=== PATIENT | male | born 1960 | race Caucasian/White ===

== ENCOUNTER 2022-09-16 14:21 | Inpatient (IN) | payer MEDICAID ==
[2022-09-16] VITALS (8 sets, daily range): BP systolic 120–153; BP diastolic 62–98
[~2022-09-16] VITALS: Ht 165.1 cm; Wt 104.3 kg
--- NOTE | 2022-09-16 14:37 | NUR ---
BG 258
--- NOTE | 2022-09-16 14:55 | NUR ---
PT A/O X4 98% O2 SAT ON ROOM AIR BREATHING EVEN AND UNLABORED. C/O: S/P SEIZURE DOES NOT REMEBER EVENTS BEFORE SEIZURE. TAKES BP MEDS AT HOME. REPORTS FALLING ON THE GOUND HAS LESION ON THE FOREHEAD MD AWARE. HAS Hx OF SEIZURES TAKES MEDS DOES NOT RECALL THE NAMES
[2022-09-16] MEDS ORDERED: ONDANSETRON HCL/PF 4 MG/2 ML VIAL IV ONE (15:00)
[2022-09-16 15:15] LABS: BASOPHILS % (AUTO) 0.2 % (0.0-2.0); EOSINOPHILS % (AUTO) 0.5 % (0.0-6.0); HEMATOCRIT 40 % (39-51); HEMOGLOBIN 13.4 g/dL (13.5-17.5); LYMPHOCYTES # (AUTO) 0.8 K/uL (0.8-4.8); LYMPHOCYTES % (AUTO) 4.6 % (20.0-44.0); MEAN CORPUSCULAR HGB CONC 34 g/dl (31.0-36.0); MEAN CORPUSCULAR VOLUME 84 fL (80-96); MONOCYTES # (AUTO) 1.1 K/uL (0.1-1.30); MONOCYTES % (AUTO) 6.3 % (2.0-12.0); NEUTROPHILS # (AUTO) 15.7 K/uL (1.8-8.9); NEUTROPHILS % (AUTO) 88.4 % (43.0-81.0); PLATELET COUNT (AUTO) 440 K/uL (150-450); RED BLOOD CELL COUNT(AUTO) 4.74 MIL/uL (4.5-6.0); WHITE BLOOD COUNT (AUTO) 17.8 K/uL (4.3-11.0)
[2022-09-16] MEDS ORDERED: ONDANSETRON HCL/PF 4 MG/2 ML VIAL ONE (15:15)
[2022-09-16 15:30] LABS: CALCIUM, SERUM 8.2 mg/dL (8.5-10.1); CREATININE 1.5 mg/dL (0.6-1.3); POTASSIUM 3.5 mmol/L (3.5-5.1)
--- NOTE | 2022-09-16 15:33 | NUR ---
SODIUM 118 PER LAB. MADE AWARE.
[2022-09-16 15:35] LABS: ALBUMIN 3.8 g/dL (3.4-5.0); BILIRUBIN,TOTAL 0.6 mg/dL (0.2-1.0); MAGNESIUM 2.6 mg/dL (1.8-2.4); TOTAL PROTEIN, SERUM 7.4 g/dL (6.4-8.2)
[2022-09-16] MEDS ORDERED: LOSA50TA39 PO (15:58)
[2022-09-16] MEDS ORDERED: AMLO-213 PO (15:58)
[2022-09-16] MEDS ORDERED: ARIP5TAB10 PO (15:58)
[2022-09-16] MEDS ORDERED: CHLO25TA2 PO (15:58)
[2022-09-16] MEDS ORDERED: ASPI-1169 PO (15:58)
[2022-09-16] MEDS ORDERED: SERT50TA PO (15:58)
[2022-09-16] MEDS ORDERED: LEVE500T9 PO (15:58)
[2022-09-16] MEDS ORDERED: IV NS 0.9% 1,000 ML IV ONE (16:00)
[2022-09-16] MEDS ORDERED: LEVETIRACETAM (500MG) 2,000 MG in IV NS 0.9% 100 ML IV ONE (16:00)
[2022-09-16 16:01] LABS: BILIRUBIN,URINE NEGATIVE (NEGATIVE); COLOR,URINE YELLOW (YELLOW); LEUKOCYTE ESTERASE ,URINE NEGATIVE (NEGATIVE); NITRITE, URINE NEGATIVE (NEGATIVE); PROTEIN,URINE 1+ mg/dl (NEGATIVE); UGLUCOSE NEGATIVE (NEGATIVE); UROBILINOGEN,URINE 0.2 EU/dL (0.2)
[2022-09-16] MEDS ORDERED: Z GUARD REMEDY 4 OZ OINT TP PRN (16:30)
[2022-09-16] MEDS ORDERED: DEXTROSE 50%-WATER 50 ML DISP.SYRIN IV PRN (16:30)
[2022-09-16] MEDS ORDERED: ONDANSETRON HCL/PF 4 MG/2 ML VIAL IVP PRN (16:30)
[2022-09-16] MEDS ORDERED: INSULIN REGULAR, HUMAN 100 UNIT/ML 3 ML VIAL SQ PRN (16:30)
[2022-09-16] MEDS: LEVETIRACETAM (500MG) 500 MG in IV NS 0.9% 100 ML IV SCH (16:30)
[2022-09-16] MEDS ORDERED: MAG HYDROX/AL HYDROX/SIMETH 30 ML UDC PO PRN (16:30)
[2022-09-16] MEDS ORDERED: ACETAMINOPHEN 325 MG TABLET PO PRN (16:30)
[2022-09-16] MEDS ORDERED: ZOLPIDEM TARTRATE 5 MG TABLET PO PRN (16:30)
[2022-09-16] MEDS ORDERED: ENOXAPARIN SODIUM 30 MG/0.3 ML DISP.SYRIN SQ SCH (16:30)
[2022-09-16] MEDS ORDERED: MAGNESIUM HYDROXIDE 30 ML UDC PO PRN (16:30)
--- NOTE | 2022-09-16 16:30 | NUR ---
civud swab collected and sent to lab
[2022-09-16 17:05] LABS: BACTERIA,URINE None seen /HPF (None Seen); MUCUS,URINE Few /LPF (None Seen); RBC,URINE 21-50 /HPF (0-2); SPERM,URINE Few /HPF (None Seen); SQUAMOUS EPITHELIAL CELL,UR 0-2 /HPF (None Seen); WBC,URINE 0-2 /HPF (0-3)
[2022-09-16 17:05] LABS: ALBUMIN 3.8 g/dL (3.4-5.0); BILIRUBIN,DIRECT 0.2 mg/dL (0.0-0.2); BILIRUBIN,TOTAL 0.6 mg/dL (0.2-1.0); TOTAL PROTEIN, SERUM 7.4 g/dL (6.4-8.2)
--- NOTE | 2022-09-16 17:21 | NUR ---
BED ASSIGNED, ICU 254, ADMITTING AWARE
--- NOTE | 2022-09-16 17:40 | NUR ---
report given to haja LINTON
[2022-09-16 18:15] LABS: BAND % (MANUAL) 5 % (0.0-5.0); EOSINOPHILS % (MANUAL) 2 % (0-4); LYMPHOCYTES % (MANUAL) 4 % (16-48); MONOCYTES % (MANUAL) 8 % (0-11.0); NEUTROPHILS % (MANUAL) 81 (42-76)
[2022-09-16] MEDS: CEFTRIAXONE 1 G in IV D5W 50 ML IV SCH (19:32)
[2022-09-16] MEDS: ENOXAPARIN SODIUM 40 MG/0.4 ML DISP.SYRIN SQ SCH (19:35)
[2022-09-16] MEDS: IV NS 0.9% 1,000 ML IV PRN (19:37)
[2022-09-16] MEDS: BLOOD SUGAR DIAGNOSTIC 1 EACH STRIP IN SCH ×2 (21:11→22:33)
--- NOTE | 2022-09-16 21:27 | NUR ---
MANAGER QUALITY COMPLIANCE. ADMISSION. RECEIVED THE PT FROM ER VIA [facility]. PT IS AWAKE, ALERT. FOLLOW COMMANDS. INSTRUCTOR CREELER SHOWING NSR. IV RT AND LT HAND 20AND 22G. IVF NS 150 ML/H, HOB ELEVATED. ALL OVER THE BODY RASH NOTED. PICTURE TAKEN. WILL MONITOR VITALS
--- NOTE | 2022-09-16 22:40 | NUR ---
CUSTOMER DATA TECHNICIAN. TROPONIN RESULT NOTIFIED SEFERINO
[2022-09-17] VITALS (15 sets, daily range): BP systolic 89–136; BP diastolic 36–84
--- NOTE | 2022-09-17 03:19 | NUR ---
arboriculture teacher. am care n given, remaining same ivf ns 150 ml/h. hob elevated. room air. sat 96%. no acute distress noted, quality assurance monitor body showing nsr. will continue to monitor vitals.
[2022-09-17] MEDS: IV NS 0.9% 1,000 ML IV PRN (03:39)
[2022-09-17] MEDS: LEVETIRACETAM (500MG) 500 MG in IV NS 0.9% 100 ML IV SCH (03:40)
[2022-09-17 05:19] LABS: BASOPHILS % (AUTO) 0.2 % (0.0-2.0); EOSINOPHILS % (AUTO) 1.6 % (0.0-6.0); HEMATOCRIT 38 % (39-51); HEMOGLOBIN 12.8 g/dL (13.5-17.5); LYMPHOCYTES # (AUTO) 1.1 K/uL (0.8-4.8); LYMPHOCYTES % (AUTO) 9.5 % (20.0-44.0); MEAN CORPUSCULAR HGB CONC 34 g/dl (31.0-36.0); MEAN CORPUSCULAR VOLUME 84 fL (80-96); MONOCYTES # (AUTO) 1.3 K/uL (0.1-1.30); NEUTROPHILS # (AUTO) 9.2 K/uL (1.8-8.9); NEUTROPHILS % (AUTO) 77.7 % (43.0-81.0); PLATELET COUNT (AUTO) 364 K/uL (150-450); RED BLOOD CELL COUNT(AUTO) 4.48 MIL/uL (4.5-6.0); WHITE BLOOD COUNT (AUTO) 11.8 K/uL (4.3-11.0)
[2022-09-17 05:49] LABS: CALCIUM, SERUM 8.2 mg/dL (8.5-10.1); CREATININE 1.3 mg/dL (0.6-1.3); POTASSIUM 3.5 mmol/L (3.5-5.1)
[2022-09-17 05:50] LABS: ALBUMIN 3.3 g/dL (3.4-5.0); BILIRUBIN,DIRECT 0.2 mg/dL (0.0-0.2); BILIRUBIN,TOTAL 0.5 mg/dL (0.2-1.0); MAGNESIUM 2.5 mg/dL (1.8-2.4); PHOSPHORUS 2.9 mg/dL (2.5-4.9); TOTAL PROTEIN, SERUM 6.5 g/dL (6.4-8.2)
--- NOTE | 2022-09-17 06:28 | NUR ---
BILINGUAL SPEECH LANGUAGE PATHOLOGIST. TROPONIN RESULT NOTIFIED YARITZA JAMISON. ORDER IS NOTIFY DR GONCALVES.
[2022-09-17 06:31] LABS: THYROID STIMULATING HORMONE 0.372 uIU/mL (0.358-3.74)
[2022-09-17 07:17] LABS: ABG BASE EXCESS -5.5 mmol/L; ABG PCO2 32.8 mmHg (35.0-45.0); ABG PH 7.374 (7.350-7.450); ABG PO2 36.4 mmHg (75.0-100.0); COHb 0.5 % (0.5-1.5); MetHb 0.3 % (0.0-1.5); O2Hb 67.1 % (94.0-97.0); SITE, ABG Other; VENT MODE, BG 3L NC
--- NOTE | 2022-09-17 07:43 | NUR ---
WOUND CARE CONSULT: PT PRESENTS WITH SKIN CONDITION WITH MULTIPLE DRY SCABS AND SCRATCH JERRY, PRESENT ON ADMISSION. PT STATES THAT HE HAD ALLERGY TO A PAIN MEDICATION PRIOR TO ADMISSION. PT THEN STATED DOES NOT KNOW WHY HE HAS RASH/SKIN CONDITION. DEFER TO PMD FOR RASH/SKIN CONDITION. PT ALSO NOTED TO HAVE DRIED BLOOD ON PLANTAR FEET. PT STATES IT IS FROM WHEN HE PULLED OUT HIS IV. DISCUSSED SKIN PROTECTION WITH NURSING STAFF. PT DEMONSTRATED ABILITY TO TURN AND REPOSITION IN BED AND IS CONTINENT AT THIS TIME. MD IN AGREEMENT WITH PLAN OF CARE.
[2022-09-17] MEDS: BLOOD SUGAR DIAGNOSTIC 1 EACH STRIP IN SCH ×4 (08:33→21:38)
[2022-09-17] MEDS: PANTOPRAZOLE 40 MG TABLET.DR PO SCH (08:34)
[2022-09-17] MEDS: SERTRALINE HCL 50 MG TABLET PO SCH (08:35)
[2022-09-17] MEDS: AMLODIPINE BESYLATE 5 MG TABLET PO SCH (08:35)
[2022-09-17] MEDS: ASPIRIN 81 MG TAB.CHEW PO SCH (08:36)
[2022-09-17] MEDS: LOSARTAN POTASSIUM 25 MG TABLET PO SCH (08:36)
[2022-09-17] MEDS ORDERED: IV NS 0.9% 1,000 ML IV PRN (09:00)
[2022-09-17] MEDS ORDERED: PANTOPRAZOLE 40 MG VIAL IV SCH (09:00)
--- NOTE | 2022-09-17 09:22 | NUR ---
Cont Seizure Precaution: Second time: Pt found standing next to bed. Disrobed EKG leads off. BP cuff removed Frequent re-orientation provided. Notified Charge Nurser Jacki for Sitter request for added safety. Attempted to apply restraints, but pt refuses and gets more agitated Bed alarm in place Pt remains impulsive. and gets OOB
--- NOTE | 2022-09-17 09:44 | NUR ---
3rd attempt found disrobed at side of bed urinated on the floor gown changed hygiene care provided reoriented and explained to stay in bed for safety PT eval at bedside
--- NOTE | 2022-09-17 09:53 | NUR ---
pt refused EKG placemant at this time will try to re apply later
--- NOTE | 2022-09-17 11:07 | NUR ---
Frequent reorientation provided to stay in bed. Pt cont to remain non compliant with hospital policy. MD notified and aware Sitter request submitted and awaiting approval
--- NOTE | 2022-09-17 11:55 | NUR ---
RN NOTE- ARRIVED TRANSFER FROM ICU. DX- SEIZURES, HYPONATREMIA. PT AOX4 A BIT CONFUSED AND OPPOSITIONAL TO CARE. DIRECTED ORIENTED, CALM INTERACTIVE. VS - BP- 123/73, HR- 87, RR- 20, T- 98.9, O2 SATS 96%. IV SITE - L HAND #22G, LAC #20G. SIDERAILS UP, BED LOCKED, CALL LIGHT IN REACH. MONITOR / ASSIST. ORDERS RECEIVED / COMPLIED
[2022-09-17] MEDS ORDERED: LORAZEPAM INJ 2 MG/ML VIAL IV STA (14:29)
[2022-09-17] MEDS ORDERED: LORAZEPAM INJ 2 MG/ML VIAL IM STA (14:33)
--- NOTE | 2022-09-17 14:46 | NUR ---
RN NOTE- INTRUSIVE, STEALING CELL PHONES AND TRYING TO GET ON COMPUTERS. OPPOSITIONAL, RAISING VOICE. FISH AGENT MADALYN ORDERED ATIVAN 2 MG IM STAT. SECURITY CALLED AND AT BEDSIDE
[2022-09-17] MEDS ORDERED: IOHEXOL-350 100 ML VIAL IV ONE (16:05)
[2022-09-17] MEDS ORDERED: CT SWABBABLE VALVE TRANS SET 1 EA INFUS.SET MC ONE (16:05)
[2022-09-17] MEDS ORDERED: IV NS 0.9% 250 ML IV ONE (16:05)
[2022-09-17] MEDS ORDERED: METOPROLOL TARTRATE INJ 5 MG/5 ML AMPUL ONE ×2 (16:20→16:26)
[2022-09-17] MEDS: METOPROLOL TARTRATE INJ 5 MG/5 ML AMPUL IVP PRN ×2 (16:25→16:30)
[2022-09-17] MEDS ORDERED: NITROGLYCERIN 0.4 MG/TAB BOTTLE SL ONE (16:30)
[2022-09-17] MEDS: LEVETIRACETAM (250 MG) 250 MG TABLET PO SCH (16:52)
[2022-09-17] MEDS ORDERED: NITROGLYCERIN 0.4 MG/TAB BOTTLE ONE (17:00)
[2022-09-17] MEDS: ENOXAPARIN SODIUM 40 MG/0.4 ML DISP.SYRIN SQ SCH (17:00)
--- NOTE | 2022-09-17 17:12 | NUR ---
RN NOTE- LOVENOX QD DOSE APPEARS TO HAVE BEEN ADMINISTERED IN ICU THIS MORNING .
[2022-09-17] MEDS: CEFTRIAXONE 1 G in IV D5W 50 ML IV SCH (17:38)
--- NOTE | 2022-09-17 18:30 | NUR ---
RN CLOSING NOTE- PT UNCHANGED THOUGH A BIT CALMER AFTER ATIVAN 2 MG IM STAT. AOX4 A BIT CONFUSED AND OPPOSITIONAL TO CARE. DIRECTED ORIENTED, CALM INTERACTIVE. VS - BP- 123/73, HR- 87, RR- 20, T- 98.9, O2 SATS 96%. IV SITE - L HAND #22G, LAC #20G. SIDERAILS UP, BED LOCKED, CALL LIGHT IN REACH. MONITOR / ASSIST. ORDERS RECEIVED / COMPLIED
[2022-09-17] MEDS ORDERED: LORAZEPAM INJ 2 MG/ML VIAL IV PRN (19:00)
--- NOTE | 2022-09-17 19:05 | NUR ---
DIRECTOR TRANSPORTATION OPENING NOTE PATIENT IS SLEEPING IN BED, EASILY BEING AROUSED. HE IS ALERT AND ORIENTED, AO X 2. HE IS ON RA, TOLERATED WELL. NO S/S OF DISTRESS OR SOB. PT DENIES OF HAVING PAIN AT THIS MOMENT. IV ACCESS IS AT HIS L AC, #20G, RUNNING NS @ 100 ML/HR; AND ANOTHER ONE IS AT HIS LEFT AC, , #22G, SL; FLUSHED WELL. IV SITE IS PATENT AND INTACT. PATIENT SHOULD BE ON EXTERNAL CELL SUPPORT OPERATOR, BUT HE REFUSED TO WEAR THE CELL SUPPORT OPERATOR. SAFETY MEASURES ARE IN PLACED: BED IN LOWEST AND LOCKED POSITION; SIDE RAILS UP X 2; CALL LIGHT AND TABLE ARE WITHIN REACH. WILL CONTINUE MONITOR THE PATIENT AND PROVIDE THE CARE PT NEEDS.
--- NOTE | 2022-09-17 19:30 | NUR ---
DOG WARDEN NOTE PT WENT TO THE BATHROOM, HE PULLED OUT HIS IV AT HIS L AC. HE REFUSED TO BE RECONNECTED WITH THE IV AFTER HE FINISHED GOING TO THE BATHROOM. PT IS WONDERING AROUND IN THE HALLWAY. EDUCATED THE PT THAT HE HAS HIGH RISK FOR FALL, AND NEED TO GO BACK TO HIS ROOM AND REST. HE VERBALIZED UNDERSTANDING, BUT STILL WONERING AROUND IN THE HALLWAY.
--- NOTE | 2022-09-17 19:35 | NUR ---
CANOE MAKER NOTE PERSUADED THE PATIENT TO WEAR EXTERNAL REPAIRER ON HIM. ON THE MONITOR, PT'S HEART RHYTHM IS SR WITH HR AT 70S.
[2022-09-18] VITALS: BP 124/63
[2022-09-18] MEDS: LEVETIRACETAM (250 MG) 250 MG TABLET PO SCH ×2 (03:48→16:11)
[2022-09-18 04:00] VITALS: BP 129/72
--- NOTE | 2022-09-18 06:12 | NUR ---
DISPATCHER SHIP PILOT NOTE PT REMOVED HIS EXTERNAL SITE ACQUISITION SPECIALIST AND PULLED HIS IV OUT. HE STATED "I DON'T NEED THEM". EDUCATED THE PT, PT STILL REFUSED TO PUT THE EXTERNAL SITE ACQUISITION SPECIALIST LEADS ON HIM, REFUSED BEING INSERTED THE IV CATHETER. CHARGE NURSE, PRABHU, NOTIFIED.
--- NOTE | 2022-09-18 06:20 | NUR ---
PHYSICAL MEDICINE TEACHER NOTE PT TOOK OFF HIS ID BAND AND THROW AWAY. HE SAID "I DON'T NEED IT". CALLED ER ADMISSION AND ORDERED ANOTHER ONE. SHAILA PUENTE IS HELPING TO PICK IT FROM ER. CHARGE NURSE, PRABHU, NOTIFIED.
[2022-09-18 06:43] LABS: BASOPHILS # (AUTO) 0.1 K/uL (0.0-0.2); BASOPHILS % (AUTO) 0.8 % (0.0-2.0); EOSINOPHILS % (AUTO) 5.8 % (0.0-6.0); HEMATOCRIT 36 % (39-51); HEMOGLOBIN 12.3 g/dL (13.5-17.5); LYMPHOCYTES # (AUTO) 1.4 K/uL (0.8-4.8); LYMPHOCYTES % (AUTO) 13.8 % (20.0-44.0); MEAN CORPUSCULAR HGB CONC 34 g/dl (31.0-36.0); MEAN CORPUSCULAR VOLUME 85 fL (80-96); MONOCYTES # (AUTO) 1.1 K/uL (0.1-1.30); NEUTROPHILS # (AUTO) 6.8 K/uL (1.8-8.9); NEUTROPHILS % (AUTO) 68.6 % (43.0-81.0); PLATELET COUNT (AUTO) 327 K/uL (150-450); RED BLOOD CELL COUNT(AUTO) 4.26 MIL/uL (4.5-6.0); WHITE BLOOD COUNT (AUTO) 9.9 K/uL (4.3-11.0)
[2022-09-18 07:14] LABS: CALCIUM, SERUM 8.5 mg/dL (8.5-10.1); CREATININE 1.1 mg/dL (0.6-1.3); PHOSPHORUS 3.5 mg/dL (2.5-4.9); POTASSIUM 4.1 mmol/L (3.5-5.1)
--- NOTE | 2022-09-18 07:18 | NUR ---
.NET ARCHITECT OPENING NOTE PATIENT IS RESTING IN BED ASLEEP BUT EASILY WOKEN UP. PATIENT IS ALERT AND ORIENTED, A/O X 2-3, ABLE TO MAKE NEEDS KNOWN. PATIENT IS ON ROOM AIR WITH EQUAL AND UNLABORED BREATHING WITH NO SIGNS OF RESPIRATORY DISTRESS. PATIENT DENIES CHEST PAIN OR DISCOMFORT AT THIS TIME. PATIENT REFUSED TO WEAR LYE MACHINE OPERATOR, MD AWARE. NO IV ACCESS AT THIS TIME. PER WELDER 2ND SHIFT NURSE, PATIENT REMOVED IV ACCESSES AND WAS VERY UNRULY LAST NIGHT. PATIENT SEEMED TO BE IN CALM DISPOSITION AT THIS POINT. SAFETY MEASURES ARE IN PLACE WITH BED IN LOWEST AND LOCKED POSITION, SIDE RAILS UP X 2, BED ALARM ON, CALL LIGHT AND TABLE ARE WITHIN REACH. WILL CONTINUE WITH PLAN OF CARE.
[2022-09-18] MEDS: BLOOD SUGAR DIAGNOSTIC 1 EACH STRIP IN SCH ×3 (07:44→16:34)
--- NOTE | 2022-09-18 07:59 | NUR ---
ELECTRICAL SERVICE TECHNICIAN CLOSING NOTE PATIENT IS RESTING IN BED. HE IS ALERT AND ORIENTED, AO X 2. HE IS ON RA, TOLERATED WELL. NO S/S OF DISTRESS OR SOB. PT DENIES OF HAVING PAIN AT THIS MOMENT. PT REMMOVED HIS EXTERNAL VP EMERGING MEDIA AND IV ACCESS FROM HIM; REFUSED BEING PUT THE VP EMERGING MEDIA ON HIM. HE REFUSED NEW IV ACCESS ON HIM WELL. SAFETY MEASURES ARE IN PLACED: BED IN LOWEST AND LOCKED POSITION; SIDE RAILS UP X 2; CALL LIGHT AND TABLE ARE WITHIN REACH. ENDORSED THE NEXT SHIFT NURSE FOR CONTINUING PT CARE.
[2022-09-18 08:00] VITALS: BP 110/62
[2022-09-18] MEDS: PANTOPRAZOLE 40 MG TABLET.DR PO SCH (08:41)
[2022-09-18] MEDS: SERTRALINE HCL 50 MG TABLET PO SCH (08:41)
[2022-09-18] MEDS: LOSARTAN POTASSIUM 25 MG TABLET PO SCH (08:41)
[2022-09-18] MEDS: ASPIRIN 81 MG TAB.CHEW PO SCH (08:41)
[2022-09-18] MEDS: AMLODIPINE BESYLATE 5 MG TABLET PO SCH (08:42)
--- NOTE | 2022-09-18 10:34 | NUR ---
IN PROCESS INSPECTOR NOTE SEEN BY HOSPITALIST JUANI MARINA. DISCUSSED PLAN TO DISCHARGE HIM. PATIENT VERBALIZED UNDERSTANDING AND APPRECIATION.
[2022-09-18 12:00] VITALS: BP 132/79
--- NOTE | 2022-09-18 12:00 | NUR ---
PRE SALES TECHNICAL CONSULTANT NOTE PATIENT SEEN BY NEURO GENERATOR REPAIRER.
--- NOTE | 2022-09-18 14:30 | NUR ---
LAND SURVEY TECHNICIAN NOTE SEEN BY HOSPITALIST JUANI MARINA WITH ORDER FOR DISCHARGE. HEALTH TEACHINGS DONE REGARDING DISCHARGE INSTRUCTION. VERBALIZED UNDERSTANDING AND APPRECIATION. IN STABLE CONDITION.
--- NOTE | 2022-09-18 15:00 | NUR ---
EXTENSION WORK INSTRUCTOR NOTE SEEN BY AUTO DESIGN DETAILER PER REQUESTED.
[2022-09-18 16:00] VITALS: BP 139/90
[2022-09-18] MEDS: CEFTRIAXONE 1 G in IV D5W 50 ML IV SCH (16:11)
--- NOTE | 2022-09-18 16:40 | NUR ---
SS CONSULT: SS consult requested for this 61 year old White male who was admitted to [facility] due to Severe hyponatremia. SS consult was requested for pt. as he presents with hypersexual behaviors, fixated on obtaining a phone to watch explicit content. SW was notified by medical staff that pt. resides at home with 2 adult stepdaughters and 2 grandchildren. Staff wants to ensure Safety of children in the home. The pt. was seen and cleared by psychiatry annd does not meet criteria for 5150 hold see EMR for details. SW met with pt. at bedside and discussed hypersexual behavior. Pt. states he is fixated on watching explicit content online. Pt. stated that he goes to his room and does this in private. SW called the pt.'s , Keily [phone] and his daughter, Chanelle [phone] who stated that the pt. is not inappropriate around the children and conducts these behaviors in a private room. SW provided pt. and the family with referrals for outpatient mental health services and family is agreeable. Per , the pt. has an outpatient psychiatrist, and they will be in communication with him if pt.'s behaviors to continue. Noted. DC PLAN: Pt.'s , Keily states family can pickle processor pt. at 7-8 pm tonight. SW notified CM. Mental Health /Counseling Services [address] [place] [address] Services: Outpatient therapy for children, teens, young adults, adults, older adults, and families; Psychiatric services, medication support [facility] (Behavioral Health) [facility] Walk-in [place] [address] Operation Hours: SAT - SAT 8:00 a.m. - 5:00 p.m. Walk In Hours: MON - SAT 8:00 a.m. - 5:00 p.m. Mental Health Services: [facility] Capable Clinical Services (FCCS) (Medication Support, Mental Health Services, Peer Support NOTE: [facility] Center 04/02 helpline: [address] [place] [address] (Specializes in in-depth psychotherapy for emotional distress: anxiety, depression, interpersonal conflicts, life transitions, childhood abuse) [facility] (Behavioral Health) [address], [address]nd [place] [address] Main Number: [facility] (AFSP): Contact [facility] [address] [place] [address] (Assist with solving problem marital difficulties, separation & divorce, aging parents, & grief, chronic & terminal illness) [facility] [address] [place] [address] (Deal with loss & grief, anxiety, marital difficulties) Homebound/Mental Health Services [address], [address] [place] [address] (Provide in-home mental services to people who are incapable of leaving their homes) [facility] [address] [place] [address] [facility] [address] [facility] [place] [address] PSYCHIATRIC OUTPATIENT SERVICES [facility] Partial Hospitalization and Intensive Outpatient Program (Managed Care and [place] Only) [address] [facility] [address]; [phone] [facility] Partial Hospitalization and Outpatient Program [address] [place] [address]; [phone] [facility] [id number] [place], [place] [phone] [facility] Partial Hospitalization and Outpatient [id number] [place], [place] ; [phone] ;[phone] [facility] Crisis stabilization, medication support mental health services [address] [facility] [id number] Appointment needed [facility] [address] [place] [address] [place] Crisis and Hotline Telephone Numbers: 24-Hour service unless stated [place] Mental Health/Crisis Line........[phone] Suicide Prevention Center (24 Hours).......[phone] Suicide Prevention Crisis Center.......[phone] (24 Hours) Alcoholics Anonymous (24 Hours)..........[phone] National Crisis Hotlines: Alcohol and Drug Helpline - Provides referrals to local facilities where adolescents and adults can seek help. Brief intervention. [facility] Helpline National [place] [facility] 1-830-174-VSNC National Youth Crisis Hotline [facility] Provides free information on specific disorders, referral directory to mental health providers, national directory of local mental health associations (M-F, 9-5 EST) National [place] of Mental Health Information Line: Provides information and literature on mental illness by disorder-for professionals and general public. [facility]stance [facility] Self-helpline ([facility]) Contact number . Call the hotline and the sheeter waxer operator will screen and link individual to an appropriate program. Must have Medi-luiza or be Medi-luiza eligible.
[2022-09-18] MEDS: ENOXAPARIN SODIUM 40 MG/0.4 ML DISP.SYRIN SQ SCH (18:01)
--- NOTE | 2022-09-18 19:00 | NUR ---
GUZZLER BUILDER NOTE PATIENT DISCHARGED ORDERED IN STABLE CONDITION. IV ACCESS REMOVED BY PATIENT COVERED WITH DRY DRESSING. DRY AND INTACT. DISCHARGE PAPERS GIBVEN TO PATIENT. HEALTH TEACHING REINFORCED. VERBALIZED UNDERSTANDING AND APPRECIAITON. IN STABLE DONDITION. ACCOMPANIED BY NURSE TO LOBBY ON A WHEEELCHAIR. IN STABLE CONDITON. ENDORSED ACCORDINGLY.
== END 2022-09-18 18:55 | disposition home or self-care (01) | DRG 426 ==
LOC: ER 14:35 → ICU 17:26 → TELE 09-17 11:53
PROVIDERS: ADMIT Nurse Practitioner Acute Care; ATTEND Nurse Practitioner Family
DX: E87.1 Hypo-osmolality and hyponatremia (principal); N17.0 Acute kidney failure with tubular necrosis; I21.A1 Myocardial infarction type 2; G93.41 Metabolic encephalopathy; M62.82 Rhabdomyolysis; S00.83XA Contusion of other part of head, initial encounter; D72.829 Elevated white blood cell count, unspecified; G40.909 Epilepsy, unspecified, not intractable, without status epilepticus; S00.81XA Abrasion of other part of head, initial encounter; Z79.82 Long term (current) use of aspirin; Z79.899 Other long term (current) drug therapy; E86.0 Dehydration; E66.9 Obesity, unspecified; Z68.39 Body mass index [BMI] 39.0-39.9, adult; I70.0 Atherosclerosis of aorta; F43.9 Reaction to severe stress, unspecified; Z82.49 Family history of ischemic heart disease and other diseases of the circulatory system; Z81.8 Family history of other mental and behavioral disorders; I10 Essential (primary) hypertension; E86.1 Hypovolemia; E87.8 Other disorders of electrolyte and fluid balance, not elsewhere classified; Z87.891 Personal history of nicotine dependence; R73.9 Hyperglycemia, unspecified; T50.2X5A Adverse effect of carbonic-anhydrase inhibitors, benzothiadiazides and other diuretics, initial encounter; Y92.9 Unspecified place or not applicable
CPT/HCPCS: 36415; 36600; 70450-TC; 71045-TC; 75574; 80048-TC; 80053-TC; 80061-TC; 80076-TC; 80177; 81001; 82010-TC; 82550-TC; 82553; 82803-TC; 82962-TC; 83690-TC; 83735-TC; 83880; 84100-TC; 84443-TC; 84484-TC; 85025-TC; 87040-TC; 87081-TC; 93307-TC; 97116-TC; 97530-TC; A4223; G0378; G0480; J0696; J1650; J1815; J1953; J2060; J2405; J3490; J7030; J7050; J7060; Q9967